=== PATIENT | female | born 1950 | race Caucasian/White ===

== ENCOUNTER 2018-01-08 19:34 | Emergency (ER) | payer SELFPAY, OTHER | END 2018-01-08 23:07 | disposition home or self-care (01) | LOC: FTE 19:34 | DX: M25.471 Effusion, right ankle (principal); I10 Essential (primary) hypertension; E11.9 Type 2 diabetes mellitus without complications; Z79.82 Long term (current) use of aspirin; Z79.84 Long term (current) use of oral hypoglycemic drugs | CPT/HCPCS: 73610; 73610-RT; 93970; 99283-25 ==